=== PATIENT | male | born 2005 | race Caucasian/White ===

== ENCOUNTER 2024-05-12 17:09 | Emergency (ER) | payer MEDICAID ==
[~2024-05-12] VITALS: Ht 165.1 cm; Wt 65.0 kg
[2024-05-12 17:21] VITALS: O2SAT 98
[2024-05-12 17:42] VITALS: BP 124/71; PULSE 109; RESP 18; TEMP 98.3; O2SAT 99
[2024-05-12] MEDS ORDERED: PENI500T MT (19:15)
[2024-05-12] MEDS ORDERED: DEXA6TAB MT (19:16)
== END 2024-05-12 22:00 | disposition home or self-care (01) ==
LOC: ER 17:09
DX: J02.0 Streptococcal pharyngitis (principal)
CPT/HCPCS: 99283